=== PATIENT | male | born 1985 | race Two or more races ===

== ENCOUNTER 2019-08-03 00:31 | Emergency (ER) | payer SELFPAY ==
[~2019-08-03] VITALS: Ht 166.4 cm; Wt 95.0 kg
[2019-08-03 01:25] LABS: BASOPHILS % (AUTO) 0.5 % (0.0-2.0); EOSINOPHILS % (AUTO) 2.7 % (1.0-6.0); HEMATOCRIT 45.4 % (41-53); HEMOGLOBIN 15.7 g/dL (13.5-17.5); LYMPHOCYTES # (AUTO) 2.3 K/uL (1.0-4.8); LYMPHOCYTES % (AUTO) 34.3 % (22.0-44.0); MEAN CORPUSCULAR HGB CONC 34.5 G/dL (31.0-37.0); MEAN CORPUSCULAR VOLUME 87 fL (80-100); MONOCYTES # (AUTO) 0.5 K/uL (0.1-1.0); MONOCYTES % (AUTO) 7.9 % (2.0-9.0); NEUTROPHILS # (AUTO) 3.7 K/uL (1.8-7.7); NEUTROPHILS % (AUTO) 54.6 % (40.0-70.0); PLATELET COUNT (AUTO) 207 K/uL (150-450); RED BLOOD CELL COUNT(AUTO) 5.22 MIL/uL (4.50-5.90)
[2019-08-03 01:37] LABS: ANION GAP 9 mmol/L (8-16); CALCIUM, TOTAL 8.9 mg/dL (8.8-10.5); CARBON DIOXIDE 28 mmol/L (22-29); CHLORIDE 102 mmol/L (98-107); CREATININE 0.98 mg/dL (0.60-1.30); GLOMERULAR FILTR. RATE CALC > 60 mL/min (>60); GLUCOSE,RANDOM 103 mg/dL (70-110); POTASSIUM 3.7 mmol/L (3.5-5.1); SODIUM SERUM 139 mmol/L (136-145); UREA NITROGEN, BLOOD 10 mg/dL (7-18)
[2019-08-03 01:42] LABS: D-DIMER 0.17 mg/L FEU (0.00-0.50); PROTHROMBIN TIME 9.8 SEC (9.4-11.6)
[2019-08-03 01:45] LABS: B-TYPE NATRIURETIC PEPTIDE 8 pg/mL (0-100)
[2019-08-03 02:02] LABS: ALANINE AMINOTRANSFERASE 86 U/L (12-78); ALBUMIN 4.1 g/dL (3.4-5.0); ALKALINE PHOSPHATASE 86 U/L (46-116); ASPARTATE AMINOTRANSFERASE 47 U/L (15-37); BILIRUBIN,TOTAL 0.5 mg/dL (0.1-1.0); CREATINE KINASE, TOTAL ONLY 229 U/L (39-308); TOTAL PROTEIN, SERUM 7.9 g/dL (6.4-8.2)
[2019-08-03 02:25] LABS: AMPHET/METH SCREEN,URINE NEGATIVE (NEGATIVE); BARBITURATE SCREEN, URINE NEGATIVE (NEGATIVE); BENZODIAZEPINES SCREEN,URINE NEGATIVE (NEGATIVE); CANNABINOID SCREEN,URINE NEGATIVE (NEGATIVE); COCAINE SCREEN,URINE NEGATIVE (NEGATIVE); METHADONE SCREEN, URINE NEGATIVE (NEGATIVE); OPIATE SCREEN,URINE NEGATIVE (NEGATIVE)
[2019-08-03 02:30] LABS: PHENCYCLIDINE SCREEN,URINE NEGATIVE (NEGATIVE)
[2019-08-03 05:00] VITALS: BP 123/80
== END 2019-08-03 05:19 | disposition home or self-care (01) ==
LOC: EMS 00:32
DX: R07.89 Other chest pain (principal); F41.9 Anxiety disorder, unspecified; F17.210 Nicotine dependence, cigarettes, uncomplicated; F11.90 Opioid use, unspecified, uncomplicated
CPT/HCPCS: 85379; 93005; 99406

== ENCOUNTER 2022-04-24 12:24 | Emergency (ER) | payer MEDICAID ==
[~2022-04-24] VITALS: Ht 170.2 cm; Wt 104.5 kg
[2022-04-24] MEDS ORDERED: KETOROLAC TROMETHAMINE 60 MG/2 ML VIAL IM ONE (14:15)
[2022-04-24] MEDS ORDERED: BACLOFEN 10 MG TABLET PO ONE (14:15)
[2022-04-24] MEDS ORDERED: HYDROCODONE/ACETAMINOPHEN 5-325 MG TABLET PO ONE (14:15)
[2022-04-24 15:48] VITALS: BP 122/80
[2022-04-24] MEDS ORDERED: IBUP-1554 PO (16:10)
[2022-04-24] MEDS ORDERED: HYDR-4723 PO (16:10)
[2022-04-24] MEDS ORDERED: BACL10TA PO (16:10)
== END 2022-04-24 16:27 | disposition home or self-care (01) ==
LOC: EMS 12:35
DX: S39.012A Strain of muscle, fascia and tendon of lower back, initial encounter (principal); F10.20 Alcohol dependence, uncomplicated; X50.0XXA Overexertion from strenuous movement or load, initial encounter; Y93.89 Activity, other specified; Y92.89 Other specified places as the place of occurrence of the external cause; Y99.8 Other external cause status
CPT/HCPCS: 99283; 96374; 72100; J1885

== ENCOUNTER 2023-02-03 17:19 | Emergency (ER) | payer MEDICAID ==
[~2023-02-03] VITALS: Ht 172.7 cm; Wt 100.0 kg
[~2023-02-03 17:19] MED LIST: BACL10TA PO; HYDR-4723 PO; IBUP-1554 PO
[2023-02-03] MEDS ORDERED: METF-1211 PO (17:21)
[2023-02-03] MEDS ORDERED: LISI2.5T13 PO (19:34)
[2023-02-03] MEDS ORDERED: METF-446 PO (19:34)
[2023-02-03] MEDS ORDERED: KETOROLAC TROMETHAMINE 30 MG/ML VIAL IM ONE (19:45)
[2023-02-03] MEDS ORDERED: LIDOCAINE 5% TRANSDERMAL PATCH TD ONE (19:45)
[2023-02-03] MEDS ORDERED: CYCLOBENZAPRINE HCL 10 MG TABLET PO ONE (21:45)
[2023-02-03] MEDS ORDERED: CYCL-448 PO (21:56)
[2023-02-03] MEDS ORDERED: LIDO700A15 TP (22:03)
[2023-02-03] MEDS ORDERED: TRAM-559 PO (22:04)
[2023-02-03 22:25] VITALS: BP 136/81
== END 2023-02-03 23:12 | disposition home or self-care (01) ==
LOC: EMS 17:19
DX: M54.9 Dorsalgia, unspecified (principal); E11.9 Type 2 diabetes mellitus without complications
CPT/HCPCS: 99283; 82962; 72100; 96372; J1885

== ENCOUNTER 2025-06-22 16:03 | Emergency (ER) | payer MEDICAID, OTHER ==
[~2025-06-22] VITALS: Ht 170.2 cm; Wt 90.0 kg
[~2025-06-22 16:03] MED LIST changes: -BACL10TA PO; +CYCL-448 PO; -HYDR-4723 PO; -IBUP-1554 PO; +LIDO-57 TP; +LISI2.5T13 PO; +METF-446 PO; +TRAM50TA5 PO
[2025-06-22] MEDS ORDERED: LISI5TAB21 PO (16:23)
[2025-06-22] MEDS ORDERED: ROSU20TA98 PO (16:23)
[2025-06-22] MEDS ORDERED: EMPA25TA3 PO (16:23)
[2025-06-22] MEDS ORDERED: METF-445 PO (16:23)
[2025-06-22 16:31] LABS: COVID AG,FIA SOURCE NASAL SWAB
[2025-06-22 16:42] LABS: PLATELET COUNT (AUTO) 203 K/uL (150-450); RED BLOOD CELL COUNT(AUTO) 5.40 MIL/uL (4.50-5.90); RED CELL DISTRIBUTION WIDTH 13.0 % (11.5-14.5); WHITE BLOOD COUNT (AUTO) 5.8 K/uL (4.5-11.0)
[2025-06-22 16:44] LABS: CALCIUM, TOTAL 8.5 mg/dL (8.8-10.5); CREATININE 0.78 mg/dL (0.60-1.30); GLOMERULAR FILTR. RATE CALC > 60 mL/min (>60); GLUCOSE,RANDOM 282 mg/dL (70-110); SODIUM SERUM 138 mmol/L (136-145); UREA NITROGEN, BLOOD 10 mg/dL (7-18)
[2025-06-22 17:11] LABS: INFLUENZA TYPE A NEGATIVE FOR TYPE A (NEGATIVE); INFLUENZA TYPE B NEGATIVE FOR TYPE B (NEGATIVE); SARS-COV2 (COVID) ANTIGEN,FIA Negative (Negative)
[2025-06-22] MEDS ORDERED: DIPH50CA37 PO (18:58)
[2025-06-22] MEDS ORDERED: ZOLP-162 PO (18:58)
[2025-06-22 19:22] VITALS: BP 96/69; PULSE 88; RESP 16; TEMP 98.1; O2SAT 99
== END 2025-06-22 19:25 | disposition home or self-care (01) ==
LOC: EMS 16:03
DX: G47.00 Insomnia, unspecified (principal); E11.65 Type 2 diabetes mellitus with hyperglycemia; R42 Dizziness and giddiness; Z79.899 Other long term (current) drug therapy; Z20.822 Contact with and (suspected) exposure to COVID-19
CPT/HCPCS: 80048; 82962; 85025; 87804; 99283